=== PATIENT | male | born 1960 | race Caucasian/White ===

== ENCOUNTER → 2020-09-15 | Outpatient (CLI) | payer MEDICARE ==
[2015-03-24 17:41] VITALS: BP 116/68
[~2020-09-15] MED LIST: ASPI-482 PO; EQUATE ALLERGY PO; LEVE500T6 PO; MULT1CAP15 PO; OMEP40CA7 PO; ONDA4TAB7 PO; OXYC1TAB15 PO; other
--- NOTE | 2020-09-15 17:13 | KCIC ---
EXAM: Right wrist, 3 views. HISTORY: Pain and swelling. Fall. COMPARISON: None. FINDINGS: 3 views of the right wrist are obtained. 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 No convincing acute fracture is seen. There are small ossicles at the base of the first metacarpal , likely due to chronic fragmented spurs. There is no foreign body. IMPRESSION: No acute osseous finding. Electronically signed by: Allie Reyes MD (09/15/2020 5:11 PM) [email or web address]
== END ==
LOC: KCIC 10:58
PROVIDERS: ATTEND Nurse Practitioner Family
DX: M84.431A Pathological fracture, right ulna, initial encounter for fracture (principal); M25.431 Effusion, right wrist
CPT/HCPCS: 73110